=== PATIENT | female | born 1955 | race Caucasian/White ===

== ENCOUNTER 2024-05-09 07:09 | Day surgery (SDC) | payer OTHER ==
[2024-05-09] VITALS (8 sets, daily range): BP systolic 105–143; BP diastolic 66–91
[~2024-05-09] VITALS: Ht 167.6 cm; Wt 85.3 kg
[~2024-05-09 07:09] MED LIST: AMLO5 PO; Aspir 8181 MG PO; CLOP75 PO; ESCI10 PO; LISI5 PO; METO100ER PO; REPATHA SU140 MG/1 M SQ
[2024-05-09] MEDS ORDERED: NS 250 ML IV ONE (08:01)
[2024-05-09] MEDS ORDERED: Heparin Sodium 1000 Units/ML 10ML MDV ONE ×2 (08:01→08:38)
[2024-05-09] MEDS ORDERED: Verapamil HCL 2.5 MG/ML 2ML Injection ONE (08:01)
[2024-05-09] MEDS ORDERED: Nitroglycerin 2 MG/20 ML BTL ONE (08:02)
[2024-05-09] MEDS ORDERED: NS 1,000 ML IV ONE ×2 (08:02→08:38)
[2024-05-09] MEDS ORDERED: FentaNYL Citrate 50 MCG/ML 2 ML Injection ONE (09:18)
[2024-05-09] MEDS ORDERED: Midazolam HCl 1MG / ML 2ML Vial ONE (09:18)
--- NOTE | 2024-05-09 09:50 | NUR ---
PATIENT ARRIVED BACK TO RECOVERY ROOM SITTING UPRIGHT IN RECLINER. PATIENT CONVERSING APPROPRIATELY. RIGHT RADIAL TR BAND IN PLACE, SITE C/D/I SOFT/NONTENDER, NO EVIDENCE OF BLEEDING. VSS ON RA. PATIENT DENYING ANY PAIN
--- NOTE | 2024-05-09 10:17 | NUR ---
PATIENT TOLERATING PO INTAKE WELL. VSS ON RA. R RADIAL TR BAND FULLY INFLATED. SITE C/D/I SOFT/NONTENDER. PATIENT DENYING ANY PAIN.
--- NOTE | 2024-05-09 10:33 | NUR ---
INITIAL 2 CC OF AIR REMOVED FROM R RADIAL TR BAND. SITE C/D/I SOFT/NONTENDER, ABBIE VIDENCE OF BLEEDING. VSS ON RA
--- NOTE | 2024-05-09 12:15 | NUR ---
PATIENT DISCHARGED HOME AT THIS TIME. DISCHARGE PAPERWORK REVIEWED WITH PATIENT AND SPOUSE. ALL QUESTIONS WERE ANSWERED. TR BAND REMOVED, CLOTH DOT AND WHITE ARM BOARD IN PLACE. SITE C/D/I SOFT/NONTENDER, NO EVIDENCE OF BLEEDING. PIV REMOVED WITHOUT DIFFICULTY, CATHETER INTACT. PATIENT AMBULATING AND VOIDING TO RESTROOM WITHOUT DIFFICULTY. VSS ON RA. PATIENT WHEELED TO HOSPITAL ENTRANCE AND SPOUSE ABLE TO PROVIDE TRANSPORTATION HOME.
== END 2024-05-09 12:15 | disposition home or self-care (01) ==
LOC: MHTC 07:09
DX: I25.10 Atherosclerotic heart disease of native coronary artery without angina pectoris (principal); I10 Essential (primary) hypertension; I25.2 Old myocardial infarction; E78.5 Hyperlipidemia, unspecified; J44.9 Chronic obstructive pulmonary disease, unspecified; G47.33 Obstructive sleep apnea (adult) (pediatric); Z87.891 Personal history of nicotine dependence; Z79.82 Long term (current) use of aspirin; Z79.02 Long term (current) use of antithrombotics/antiplatelets; Z79.899 Other long term (current) drug therapy
CPT/HCPCS: 76937; 93454; 99152; C1769; C1887; C1894; J1644; J2250; J3010; J7030; J7050; Q9967